=== PATIENT | male | born 1935 | race Two or more races ===

== ENCOUNTER 2017-12-16 03:19 | Emergency (ER) | payer MEDICARE, OTHER ==
[~2017-12-16] VITALS: Ht 177.8 cm; Wt 113.6 kg
[~2017-12-16 03:19] MED LIST: ALLO100T PO; CHOL10002 PO; CINA30TA PO; COU2.5T PO; FERR325T28 PO; FINA5TAB11 PO; FURO40TA4 PO; GABA-532 PO; GABA600T2 PO; GLIM4TAB79 PO; INSU100C4 SQ; LANTUS SUBCUT; METO25TA6 PO; MULT1TAB74 PO; MYCO250C46 PO; PRAV20TA4 PO; TACR1CAP2 PO; TACR1CAP28 PO; VALA500T37 PO
[2017-12-16] MEDS ORDERED: normal saline 1000ML IV soln IVB ONE (03:20)
[2017-12-16] MEDS ORDERED: dexamethasone sod phosphate 10mg/ml inj IV STA (03:20)
[2017-12-16 04:44] LABS: BASOPHILS % (AUTO) 0.2 % (0-1); EOSINOPHILS # (AUTO) 0.1 X10'3 (0-0.9); EOSINOPHILS % (AUTO) 1.3 % (0-6); HEMATOCRIT 39.9 % (42.0-52.0); HEMOGLOBIN 12.8 g/dl (14.0-17.9); LYMPHOCYTES # (AUTO) 0.5 X10'3 (1.1-4.8); LYMPHOCYTES % (AUTO) 6.3 % (21-51); MEAN CORPUSCULAR HEMOGLOBIN 29.2 PG (27.0-31.0); MEAN CORPUSCULAR HGB CONC 32.1 % (33.0-36.5); MEAN PLATELET VOLUME 9.4 FL (7.4-10.4); MONOCYTES # (AUTO) 0.6 X10'3 (0-0.9); MONOCYTES % (AUTO) 8.5 % (2-12); NEUTROPHILS # (AUTO) 6.2 X10'3 (1.8-7.7); NEUTROPHILS % (AUTO) 83.7 % (42-75); PLATELET COUNT 173 X10'3 (140-440); RED BLOOD COUNT 4.39 X10'6 (4.70-6.10); RED CELL DISTRIBUTION WIDTH 14.6 % (11.5-14.5); WHITE BLOOD COUNT 7.4 X10'3 (4.5-11.0)
[2017-12-16 04:58] LABS: ALANINE AMINOTRANSFERASE 46 U/L (12-78); ALBUMIN 3.1 G/DL (3.4-5.0); ALBUMIN/GLOBULIN RATIO 0.8 (1.1-1.5); ALKALINE PHOSPHATASE 74 IU/L (46-116); ANION GAP 12 (8-16); ASPARTATE AMINO TRANSFERASE 44 U/L (10-37); BILIRUBIN,TOTAL 0.6 MG/DL (0.1-1.0); BLOOD UREA NITROGEN 81 MG/DL (7-18); BUN/CREATININE RATIO 36.3 (5.4-32.0); CALCIUM 8.6 MG/DL (8.5-10.1); CHLORIDE 104 MMOL/L (99-107); CREATININE 2.23 MG/DL (0.60-1.10); GLUCOSE 51 MG/DL (70-104); POTASSIUM 3.4 MMOL/L (3.5-5.1); SODIUM 143 MMOL/L (135-145); TOTAL CARBON DIOXIDE 26.7 MMOL/L (24-32); TOTAL PROTEIN 6.8 G/DL (6.4-8.2); eGFR 28 ML/MIN
[2017-12-16] MEDS ORDERED: CefTRIAXone 2gm/D5W 50ml 50 ML IV ONE (05:05)
[2017-12-16 07:12] VITALS: BP 140/60
== END 2017-12-16 07:15 | disposition home or self-care (01) ==
LOC: ER 03:19
DX: E11.649 Type 2 diabetes mellitus with hypoglycemia without coma (principal); I48.91 Unspecified atrial fibrillation; I12.9 Hypertensive chronic kidney disease with stage 1 through stage 4 chronic kidney disease, or unspecified chronic kidney disease; E11.22 Type 2 diabetes mellitus with diabetic chronic kidney disease; N18.9 Chronic kidney disease, unspecified; M19.90 Unspecified osteoarthritis, unspecified site; M10.9 Gout, unspecified; Z91.013 Allergy to seafood; Z88.0 Allergy status to penicillin; Z88.8 Allergy status to other drugs, medicaments and biological substances; Z79.4 Long term (current) use of insulin; Z79.2 Long term (current) use of antibiotics; Z79.01 Long term (current) use of anticoagulants; Z79.899 Other long term (current) drug therapy
CPT/HCPCS: 36415; 80053; 82948; 85025; 96361; 96365; 96375; 99284; J0696; J1100; J7030

== ENCOUNTER 2018-03-10 10:58 | Emergency (ER) | payer MEDICARE, OTHER ==
[~2018-03-10] VITALS: Ht 172.7 cm; Wt 100.0 kg
[~2018-03-10 10:58] MED LIST changes: +GABA600T13 PO; -GABA600T2 PO
[2018-03-10] MEDS ORDERED: indomethacin 25mg capsule PO ONE (11:15)
[2018-03-10] MEDS ORDERED: HYDROcodone/acetaminophen 5mg/325mg tablet PO ONE (11:15)
[2018-03-10 11:25] LABS: BASOPHILS % (AUTO) 0.1 % (0-1); EOSINOPHILS # (AUTO) 0.1 X10'3 (0-0.9); EOSINOPHILS % (AUTO) 1.6 % (0-6); HEMATOCRIT 38.4 % (42.0-52.0); HEMOGLOBIN 12.5 g/dl (14.0-17.9); LYMPHOCYTES # (AUTO) 0.6 X10'3 (1.1-4.8); LYMPHOCYTES % (AUTO) 6.4 % (21-51); MEAN CORPUSCULAR HEMOGLOBIN 29.6 PG (27.0-31.0); MEAN CORPUSCULAR HGB CONC 32.6 % (33.0-36.5); MEAN CORPUSCULAR VOLUME 90.8 FL (78-98); MEAN PLATELET VOLUME 8.8 FL (7.4-10.4); MONOCYTES % (AUTO) 10.2 % (2-12); NEUTROPHILS # (AUTO) 7.7 X10'3 (1.8-7.7); NEUTROPHILS % (AUTO) 81.7 % (42-75); PLATELET COUNT 163 X10'3 (140-440); RED BLOOD COUNT 4.23 X10'6 (4.70-6.10); RED CELL DISTRIBUTION WIDTH 14.1 % (11.5-14.5); WHITE BLOOD COUNT 9.5 X10'3 (4.5-11.0)
[2018-03-10 11:50] LABS: ALANINE AMINOTRANSFERASE 17 U/L (12-78); ALBUMIN 3.1 G/DL (3.4-5.0); ALBUMIN/GLOBULIN RATIO 0.8 (1.1-1.5); ALKALINE PHOSPHATASE 86 IU/L (46-116); ANION GAP 12 (8-16); ASPARTATE AMINO TRANSFERASE 12 U/L (10-37); BILIRUBIN,TOTAL 1.2 MG/DL (0.1-1.0); BLOOD UREA NITROGEN 65 MG/DL (7-18); BUN/CREATININE RATIO 28.3 (5.4-32.0); CALCIUM 7.6 MG/DL (8.5-10.1); CHLORIDE 97 MMOL/L (99-107); GLUCOSE 291 MG/DL (70-104); POTASSIUM 4.4 MMOL/L (3.5-5.1); SODIUM 134 MMOL/L (135-145); TOTAL CARBON DIOXIDE 25.2 MMOL/L (24-32); TOTAL PROTEIN 6.8 G/DL (6.4-8.2); eGFR 27 ML/MIN
[2018-03-10 12:09] VITALS: BP 165/81
[2018-03-10] MEDS ORDERED: COLC0.6T69 PO (12:13)
[2018-03-10] MEDS ORDERED: INDO25CA18 PO (12:13)
== END 2018-03-10 12:46 | disposition home or self-care (01) ==
LOC: ER 10:59
DX: M10.9 Gout, unspecified (principal); I12.9 Hypertensive chronic kidney disease with stage 1 through stage 4 chronic kidney disease, or unspecified chronic kidney disease; N18.3 Chronic kidney disease, stage 3 (moderate); E11.22 Type 2 diabetes mellitus with diabetic chronic kidney disease; I48.91 Unspecified atrial fibrillation; M19.90 Unspecified osteoarthritis, unspecified site; Z91.013 Allergy to seafood; Z88.0 Allergy status to penicillin; Z88.8 Allergy status to other drugs, medicaments and biological substances; Z79.4 Long term (current) use of insulin; Z79.01 Long term (current) use of anticoagulants; Z79.899 Other long term (current) drug therapy; Z98.890 Other specified postprocedural states
CPT/HCPCS: 36415; 73110; 80053; 84550; 85025; 99284

== ENCOUNTER 2018-05-31 03:06 | Inpatient (IN) | payer MEDICARE, OTHER ==
[~2018-05-31] VITALS: Ht 172.7 cm; Wt 56.8 kg
[~2018-05-31 03:06] MED LIST changes: +COLC0.6T69 PO; +INDO25CA18 PO
[2018-05-31 04:15] LABS: ALANINE AMINOTRANSFERASE 15 U/L (12-78); ALBUMIN 3.3 G/DL (3.4-5.0); ALBUMIN/GLOBULIN RATIO 1.1 (1.1-1.5); ALKALINE PHOSPHATASE 81 IU/L (46-116); ANION GAP 10 (8-16); ASPARTATE AMINO TRANSFERASE 13 U/L (10-37); BILIRUBIN,TOTAL 0.6 MG/DL (0.1-1.0); BLOOD UREA NITROGEN 66 MG/DL (7-18); BUN/CREATININE RATIO 26.9 (5.4-32.0); CALCIUM 7.7 MG/DL (8.5-10.1); CHLORIDE 104 MMOL/L (99-107); CREATININE 2.45 MG/DL (0.60-1.10); GLUCOSE 126 MG/DL (70-104); POTASSIUM 3.8 MMOL/L (3.5-5.1); SODIUM 139 MMOL/L (135-145); TOTAL CARBON DIOXIDE 24.6 MMOL/L (24-32); TOTAL PROTEIN 6.4 G/DL (6.4-8.2); eGFR 26 ML/MIN
[2018-05-31 04:18] LABS: BASOPHILS % (AUTO) 0.6 % (0-1); EOSINOPHILS # (AUTO) 0.1 X10'3 (0-0.9); EOSINOPHILS % (AUTO) 3.1 % (0-6); HEMATOCRIT 38.3 % (42.0-52.0); HEMOGLOBIN 12.5 g/dl (14.0-17.9); LYMPHOCYTES # (AUTO) 0.9 X10'3 (1.1-4.8); LYMPHOCYTES % (AUTO) 20.4 % (21-51); MEAN CORPUSCULAR HEMOGLOBIN 29.5 PG (27.0-31.0); MEAN CORPUSCULAR HGB CONC 32.6 g/dL (33.0-36.5); MEAN CORPUSCULAR VOLUME 90.6 FL (78-98); MEAN PLATELET VOLUME 10.2 FL (7.4-10.4); MONOCYTES # (AUTO) 0.6 X10'3 (0-0.9); NEUTROPHILS # (AUTO) 2.8 X10'3 (1.8-7.7); NEUTROPHILS % (AUTO) 62.9 % (42-75); PLATELET COUNT 148 X10'3 (140-440); RED BLOOD COUNT 4.23 X10'6 (4.70-6.10); RED CELL DISTRIBUTION WIDTH 14.4 % (11.5-14.5); WHITE BLOOD COUNT 4.4 X10'3 (4.5-11.0)
[2018-05-31 04:36] LABS: MAGNESIUM 1.8 MG/DL (1.5-2.4)
[2018-05-31] MEDS ORDERED: CINA30TA PO (04:37)
[2018-05-31] MEDS ORDERED: GLIM4TAB79 PO (04:37)
[2018-05-31] MEDS ORDERED: METO25TA6 PO (04:37)
[2018-05-31] MEDS ORDERED: CHOL10002 PO (04:37)
[2018-05-31] MEDS ORDERED: TURM500C4 PO (04:37)
[2018-05-31] MEDS ORDERED: TACR0.5C20 PO (04:37)
[2018-05-31] MEDS ORDERED: COU1T PO (04:37)
[2018-05-31] MEDS ORDERED: TACR1CAP2 PO (04:37)
[2018-05-31] MEDS ORDERED: LOVA20TA2 PO (04:37)
[2018-05-31] MEDS ORDERED: FURO40TA4 PO ×2 (04:37)
[2018-05-31] MEDS ORDERED: magnesium 2GM in 50ml NS 50 ML IV PRN (05:25)
[2018-05-31] MEDS ORDERED: dextrose ORAL solution 15 GM/59 ML bottle PO PRN ×2 (05:25)
[2018-05-31] MEDS ORDERED: magnesium hydroxide 30ml (MOM) UD suspension PO PRN (05:25)
[2018-05-31] MEDS ORDERED: glucagon, human recombinant 1mg kit SUBCUT PRN (05:25)
[2018-05-31] MEDS ORDERED: magnesium 4gm in 100ml NS 100 ML IV PRN (05:25)
[2018-05-31] MEDS ORDERED: ondansetron/PF 4mg/2ml inj IV PRN (05:25)
[2018-05-31] MEDS ORDERED: dextrose 50%-water 50ml dispensing syringe IV PRN ×2 (05:25)
[2018-05-31] MEDS ORDERED: potassium Cl 40MEQ/NS 500ml 500 ML IV PRN ×2 (05:25)
[2018-05-31] MEDS ORDERED: MESSAGE TO PHARMACY PO ONE (05:25)
[2018-05-31] MEDS ORDERED: mag hydrox/Alum hydrox/simeth 30ml oral suspension PO PRN (05:25)
[2018-05-31] MEDS ORDERED: acetaminophen 325mg tablet PO PRN ×2 (05:25→23:00)
[2018-05-31] MEDS ORDERED: potassium Cl 20 mEq SR tablet PO PRN ×2 (05:25)
[2018-05-31] MEDS: K and/or MAG REPLACEMENT MC SCH (07:31)
[2018-05-31] MEDS ORDERED: tacrolimus anhydrous 1mg capsule PO SCH (08:00)
[2018-05-31] MEDS ORDERED: non-formulary drug (Turmeric/Turmeric Root Extract (Turmeric 500 mg Capsule) 1 CAP) PO SCH (08:00)
[2018-05-31] MEDS: normal saline 1000ml 1,000 ML IV SCH (08:04)
[2018-05-31] MEDS: vitamin D (cholecalciferol) 1,000 unit tablet PO SCH (08:19)
[2018-05-31] MEDS: furosemide 40mg tablet PO SCH ×2 (08:19→22:19)
[2018-05-31] MEDS: metoprolol tartrate 25mg tablet PO SCH ×2 (08:19→22:45)
[2018-05-31] MEDS: atorvastatin 10mg tablet PO SCH ×2 (08:19→22:19)
[2018-05-31] MEDS: cinacalcet 30mg tablet PO SCH (08:21)
[2018-05-31] MEDS ORDERED: nitroGLYCERIN 0.4mg SUBLingual tab SL PRN (08:40)
[2018-05-31] MEDS ORDERED: metoprolol tartrate 1mg/ml inj IV PRN (08:40)
[2018-05-31] MEDS ORDERED: aminophylline 250mg/10ml inj. IV PRN (08:40)
[2018-05-31] MEDS ORDERED: regadenoson 0.4mg/5ml syringe IV ONE (08:40)
[2018-05-31] MEDS ORDERED: mycophenolate mofetil 250mg capsule PO ONE (11:10)
[2018-05-31] MEDS ORDERED: COU3T PO (14:42)
[2018-05-31] MEDS ORDERED: INSU100I8 (14:44)
[2018-05-31] MEDS ORDERED: LANTUS (14:44)
[2018-05-31 15:30] VITALS: BP 128/66
--- NOTE | 2018-05-31 15:30 | NUR ---
Patient admitted from ED via gurney, accompanied by ED RN. Transferred to bed via ambulation, assisted by staff. Vital signs taken and are stable. Pictures taken of skin tear on left arm (stated from patient that it is from a week ago), and of Right big toe.Patient is stable and resting comfortably in bed and has no complaints.
--- NOTE | 2018-05-31 18:12 | NUR ---
Problems reprioritized. Patient report given, questions answered & plan of care reviewed with Rosy NEUMANN. Pt resting in bed and in no acute distress.
--- NOTE | 2018-05-31 18:20 | NUR ---
Patient in room [facility]. I have received report from Kisha NEUMANN and Grecia NEUMANN and had the opportunity to ask questions and assume patient care.
[2018-05-31 19:00] VITALS: BP 120/67
[2018-05-31] MEDS: insulin Lispro (HumaLOG) vial - multi-dose SQ SCH (19:06)
[2018-05-31] MEDS ORDERED: tacrolimus anhydrous 0.5mg capsule PO SCH (21:00)
[2018-05-31] MEDS ORDERED: warfarin 3mg tablet PO ONE (21:00)
[2018-05-31] MEDS: insulin glargine (Lantus) pen - multi-dose SQ SCH (21:00)
--- NOTE | 2018-05-31 21:59 | NUR ---
Call MD regarding patients transplant medication as apparently he take 2mg prograf in AM and 1.5mg in evening - not what we had on e-apr.
[2018-05-31] MEDS: mycophenolate mofetil 250mg capsule PO SCH (22:15)
[2018-05-31] MEDS: tacrolimus anhydrous 0.5mg capsule PO SCH (22:21)
[2018-06-01] VITALS (11 sets, daily range): BP systolic 107–161; BP diastolic 57–90
[2018-06-01] MEDS: normal saline 1000ml 1,000 ML IV SCH (01:36)
[2018-06-01 06:28] LABS: BASOPHILS % (AUTO) 0.4 % (0-1); EOSINOPHILS # (AUTO) 0.2 X10'3 (0-0.9); EOSINOPHILS % (AUTO) 5.1 % (0-6); HEMATOCRIT 36.9 % (42.0-52.0); LYMPHOCYTES # (AUTO) 0.8 X10'3 (1.1-4.8); LYMPHOCYTES % (AUTO) 18.1 % (21-51); MEAN CORPUSCULAR HEMOGLOBIN 29.3 PG (27.0-31.0); MEAN CORPUSCULAR HGB CONC 32.6 g/dL (33.0-36.5); MEAN CORPUSCULAR VOLUME 89.7 FL (78-98); MEAN PLATELET VOLUME 10.2 FL (7.4-10.4); MONOCYTES # (AUTO) 0.5 X10'3 (0-0.9); MONOCYTES % (AUTO) 11.2 % (2-12); NEUTROPHILS % (AUTO) 65.2 % (42-75); PLATELET COUNT 148 X10'3 (140-440); RED BLOOD COUNT 4.12 X10'6 (4.70-6.10); RED CELL DISTRIBUTION WIDTH 14.4 % (11.5-14.5); WHITE BLOOD COUNT 4.6 X10'3 (4.5-11.0)
[2018-06-01 06:33] LABS: INR 1.9 INR
[2018-06-01 06:34] LABS: ALANINE AMINOTRANSFERASE 13 U/L (12-78); ALBUMIN 3.1 G/DL (3.4-5.0); ALKALINE PHOSPHATASE 79 IU/L (46-116); ANION GAP 11 (8-16); ASPARTATE AMINO TRANSFERASE 13 U/L (10-37); BILIRUBIN,TOTAL 0.8 MG/DL (0.1-1.0); BLOOD UREA NITROGEN 60 MG/DL (7-18); BUN/CREATININE RATIO 29.1 (5.4-32.0); CALCIUM 8.3 MG/DL (8.5-10.1); CHLORIDE 106 MMOL/L (99-107); CREATININE 2.06 MG/DL (0.60-1.10); GLUCOSE 86 MG/DL (70-104); MAGNESIUM 1.8 MG/DL (1.5-2.4); POTASSIUM 3.7 MMOL/L (3.5-5.1); SODIUM 143 MMOL/L (135-145); TOTAL CARBON DIOXIDE 26.1 MMOL/L (24-32); TOTAL PROTEIN 6.2 G/DL (6.4-8.2); eGFR 31 ML/MIN
--- NOTE | 2018-06-01 06:54 | NUR ---
Patient in room [facility]. I have received report from Rosy NEUMANN and had the opportunity to ask questions and assume patient care.
[2018-06-01] MEDS: K and/or MAG REPLACEMENT MC SCH (08:00)
[2018-06-01] MEDS ORDERED: tacrolimus anhydrous 0.5mg capsule PO SCH (08:00)
[2018-06-01] MEDS: furosemide 40mg tablet PO SCH ×2 (09:21→22:07)
[2018-06-01] MEDS: atorvastatin 10mg tablet PO SCH (09:22)
[2018-06-01] MEDS: vitamin D (cholecalciferol) 1,000 unit tablet PO SCH (09:22)
[2018-06-01] MEDS: cinacalcet 30mg tablet PO SCH (09:22)
[2018-06-01] MEDS: tacrolimus anhydrous 1mg capsule PO SCH (09:23)
[2018-06-01] MEDS: mycophenolate mofetil 250mg capsule PO SCH ×2 (09:25→22:11)
[2018-06-01] MEDS ORDERED: aminophylline inj. 10 ML IV ONE (10:31)
[2018-06-01] MEDS ORDERED: regadenoson 0.4mg/5ml syringe IV ONE ×2 (10:31→10:40)
[2018-06-01] MEDS ORDERED: aminophylline 250mg/10ml inj. IV PRN (10:40)
[2018-06-01] MEDS ORDERED: metoprolol tartrate 1mg/ml inj IV PRN (10:45)
[2018-06-01] MEDS: metoprolol tartrate 25mg tablet PO SCH ×2 (13:04→22:12)
--- NOTE | 2018-06-01 15:43 | NUR ---
DM Consult: A1C 8.7. Pt admit w/ chest pressure currently in observation for ACS EF 68%. Pt PO 75% heart healthy diet currently NPO at midnight tonight for cardiac imagine. GLU WNL only on heart healthy diet at this time. LBM 05/31. Pt seen by RD for written/verbal DM ed w/ RD contact information provided. RD encouraged attending CDE course. Pt reports trying to lose wt now and pay more attention to GLU control/diet. RD encouraged to call if any DM questions. Will continue to monitor. Rec: 1. continue heart healthy diet; monitor for carb controlled addition needs per MD 2. monitor for ONS needs 3. wt per rx Addendum: 06/01/18 at [address] Amended: Links added.
--- NOTE | 2018-06-01 18:24 | NUR ---
Problems reprioritized. Patient report given, questions answered & plan of care reviewed with Rosy NEUMANN.
--- NOTE | 2018-06-01 18:30 | NUR ---
Patient in room [facility]. I have received report from Raghu cuenca and had the opportunity to ask questions and assume patient care.
[2018-06-01] MEDS: insulin Lispro (HumaLOG) vial - multi-dose SQ SCH ×4 (19:07→22:31)
--- NOTE | 2018-06-01 19:23 | NUR ---
Patient refused 9 unit coverage of humalog per our protocol, and stated he only wanted 5 units. Wasted 4units and gave 5 per pt. request.
[2018-06-01] MEDS: insulin glargine (Lantus) pen - multi-dose SQ SCH (21:00)
[2018-06-01] MEDS ORDERED: warfarin 4mg tablet PO ONE (21:00)
[2018-06-01] MEDS: tacrolimus anhydrous 0.5mg capsule PO SCH (22:09)
[2018-06-02] VITALS: BP 118/51
--- NOTE | 2018-06-02 02:44 | NUR ---
At 0230, patient c/o feeling like he had a low blood sugar. Accu check revealed BS of 63. Gave 15g oral dextrose as currently w/o IV.
--- NOTE | 2018-06-02 02:50 | NUR ---
Blood sugar now at 105. Will continue to monitor.
[2018-06-02 06:04] LABS: BASOPHILS % (AUTO) 0.4 % (0-1); EOSINOPHILS # (AUTO) 0.1 X10'3 (0-0.9); EOSINOPHILS % (AUTO) 3.3 % (0-6); HEMATOCRIT 38.2 % (42.0-52.0); HEMOGLOBIN 12.5 g/dl (14.0-17.9); LYMPHOCYTES # (AUTO) 0.9 X10'3 (1.1-4.8); LYMPHOCYTES % (AUTO) 20.3 % (21-51); MEAN CORPUSCULAR HEMOGLOBIN 29.4 PG (27.0-31.0); MEAN CORPUSCULAR HGB CONC 32.7 g/dL (33.0-36.5); MEAN CORPUSCULAR VOLUME 89.8 FL (78-98); MEAN PLATELET VOLUME 9.6 FL (7.4-10.4); MONOCYTES # (AUTO) 0.5 X10'3 (0-0.9); MONOCYTES % (AUTO) 11.8 % (2-12); NEUTROPHILS # (AUTO) 2.8 X10'3 (1.8-7.7); NEUTROPHILS % (AUTO) 64.2 % (42-75); PLATELET COUNT 142 X10'3 (140-440); RED BLOOD COUNT 4.26 X10'6 (4.70-6.10); RED CELL DISTRIBUTION WIDTH 14.3 % (11.5-14.5); WHITE BLOOD COUNT 4.4 X10'3 (4.5-11.0)
[2018-06-02 06:22] LABS: ALANINE AMINOTRANSFERASE 12 U/L (12-78); ALBUMIN 3.3 G/DL (3.4-5.0); ALKALINE PHOSPHATASE 80 IU/L (46-116); ANION GAP 9 (8-16); ASPARTATE AMINO TRANSFERASE 12 U/L (10-37); BILIRUBIN,TOTAL 1.1 MG/DL (0.1-1.0); BLOOD UREA NITROGEN 60 MG/DL (7-18); BUN/CREATININE RATIO 26.8 (5.4-32.0); CALCIUM 8.5 MG/DL (8.5-10.1); CHLORIDE 105 MMOL/L (99-107); CREATININE 2.24 MG/DL (0.60-1.10); GLUCOSE 121 MG/DL (70-104); INR 1.9 INR; MAGNESIUM 1.8 MG/DL (1.5-2.4); POTASSIUM 3.6 MMOL/L (3.5-5.1); PROTHROMBIN TIME 19.1 SECONDS (9.0-12.0); SODIUM 141 MMOL/L (135-145); TOTAL CARBON DIOXIDE 26.6 MMOL/L (24-32); TOTAL PROTEIN 6.5 G/DL (6.4-8.2); eGFR 28 ML/MIN
--- NOTE | 2018-06-02 06:44 | NUR ---
TOSSER for Heart doctor called and said to reinstate diet as patient will NOT be going for the cath proceedure today. also, OK to put new piv into RFA.
--- NOTE | 2018-06-02 07:02 | NUR ---
Problems reprioritized. Patient report given, questions answered & plan of care reviewed with Mana NEUMANN. Patient resting, in no distress.
[2018-06-02] MEDS: K and/or MAG REPLACEMENT MC SCH (07:37)
[2018-06-02 07:43] VITALS: BP 130/59
--- NOTE | 2018-06-02 08:58 | NUR ---
Poornima Thorne NP, stated catheterization has been cancelled at this time. Kidney transplant history is of concern, and Dr Melgoza will continue to follow pt.
[2018-06-02] MEDS: cinacalcet 30mg tablet PO SCH (09:12)
[2018-06-02] MEDS: vitamin D (cholecalciferol) 1,000 unit tablet PO SCH (09:17)
[2018-06-02] MEDS: atorvastatin 10mg tablet PO SCH (09:17)
[2018-06-02] MEDS: mycophenolate mofetil 250mg capsule PO SCH (09:19)
[2018-06-02] MEDS: furosemide 40mg tablet PO SCH (09:19)
[2018-06-02] MEDS: metoprolol tartrate 25mg tablet PO SCH (09:19)
[2018-06-02] MEDS: tacrolimus anhydrous 1mg capsule PO SCH (10:15)
[2018-06-02] MEDS ORDERED: warfarin 5mg tablet PO ONE (10:45)
[2018-06-02] MEDS ORDERED: NITR0.4T51 SL (11:23)
[2018-06-02] MEDS ORDERED: MYCO250C PO (11:23)
[2018-06-02] MEDS ORDERED: FURO40TA4 PO (11:23)
[2018-06-02 11:41] VITALS: BP 123/63
--- NOTE | 2018-06-02 13:03 | NUR ---
PT. DISCHARGE READY TO GO. PATIENT IS WAITING FOR TO PICK HIM UP AT 3:30. WOULD PREFER FOR TO PICK HIM UP INSTEAD OF TAKING CAB. ASSISTANT AUDITOR CALLING IN MEDICATIONS NOW TO [facility] [address].
--- NOTE | 2018-06-02 14:00 | NUR ---
pt decided that his can not pick him up. He would like a cab vcalled for him and is able to pay for his cab.
--- NOTE | 2018-06-02 15:10 | NUR ---
PT DISCHARGED AT 1430 IN A STABLE CONDITION. TOOK ALL OF HIS BELONGINGS WITH HIM. IV DC'D, PRESSURE BANDAGE APPLIED, NO S/SX BLEEDING NOTED. TELE DC'D REMOVED AND RETURNED. REVIEWED DISCHARGE PAPERWORK WITH PT. HE UNDERSTANDS TO RETURN IF ANY WORSENING OR PERSISTENT SYMPTOMS. REVIEWED NEW MEDICATIONS. NITRO DELIVERED TO PT IN ROOM BY [facility]. HOSPITAL VOLUNTEER ESCORTED PT. IN W/C TO BOTTOM FLOOR WHERE A [employer] CAB AWAITED HIM TO DRIVE HIM TO HIS ASSISTED LIVING.
[2018-06-03] MEDS ORDERED: furosemide 40mg tablet PO SCH (08:00)
== END 2018-06-02 15:00 | disposition home or self-care (01) | DRG 303 ==
LOC: ER 03:06 → ED HOLD 05:21 → EDBEDREQ 14:24 → SUR 3N 15:20
PROVIDERS: ADMIT Family Medicine; ATTEND Family Medicine
DX: I25.119 Atherosclerotic heart disease of native coronary artery with unspecified angina pectoris (principal); I13.0 Hypertensive heart and chronic kidney disease with heart failure and stage 1 through stage 4 chronic kidney disease, or unspecified chronic kidney disease; I50.32 Chronic diastolic (congestive) heart failure; R07.89 Other chest pain; I48.91 Unspecified atrial fibrillation; Z79.01 Long term (current) use of anticoagulants; N18.9 Chronic kidney disease, unspecified; E11.22 Type 2 diabetes mellitus with diabetic chronic kidney disease
CPT/HCPCS: 36415; 71045; 78452; 80053; 82948; 83036; 83735; 83880; 84484; 85025; 85610; 87070; 93005; 93017; 93306; 99285; A9500; G0378; J0280; J1815; J7030; J7507; J7517

== ENCOUNTER 2018-09-20 07:37 | Inpatient (IN) | payer MEDICARE, OTHER ==
[~2018-09-20] VITALS: Ht 172.7 cm; Wt 95.5 kg
--- NOTE | 2018-09-20 06:00 | NUR ---
Patient in room [facility] 4007. I have received report from Cruz NEUMANN and had the opportunity to ask questions and assume patient care.
[~2018-09-20 07:37] MED LIST changes: -ALLO100T PO; -COLC0.6T69 PO; +COU1T PO; -COU2.5T PO; +COU3T PO; -FERR325T28 PO; -FINA5TAB11 PO; -GABA-532 PO; -GABA600T13 PO; +GLIM4TAB4 PO; -GLIM4TAB79 PO; -INDO25CA18 PO; -INSU100C4 SQ; +INSU100I8; +LANTUS; -LANTUS SUBCUT; +LOVA20TA2 PO; -MULT1TAB74 PO; +MYCO250C PO; -MYCO250C46 PO; +NITR0.4T51 SL; -PRAV20TA4 PO; +TACR0.5C20 PO; -TACR1CAP28 PO; -VALA500T37 PO
[2018-09-20 08:27] LABS: BASOPHILS # (AUTO) 0.1 X10'3 (0-0.2); BASOPHILS % (AUTO) 0.4 % (0-1); EOSINOPHILS # (AUTO) 0.1 X10'3 (0-0.9); EOSINOPHILS % (AUTO) 0.4 % (0-6); HEMATOCRIT 36.3 % (42.0-52.0); HEMOGLOBIN 11.9 g/dl (14.0-17.9); LYMPHOCYTES # (AUTO) 0.5 X10'3 (1.1-4.8); LYMPHOCYTES % (AUTO) 3.8 % (21-51); MEAN CORPUSCULAR HEMOGLOBIN 28.9 PG (27.0-31.0); MEAN CORPUSCULAR HGB CONC 32.8 g/dL (33.0-36.5); MEAN CORPUSCULAR VOLUME 88.2 FL (78-98); MEAN PLATELET VOLUME 9.2 FL (7.4-10.4); MONOCYTES # (AUTO) 0.8 X10'3 (0-0.9); MONOCYTES % (AUTO) 6.3 % (2-12); NEUTROPHILS # (AUTO) 11.4 X10'3 (1.8-7.7); NEUTROPHILS % (AUTO) 89.1 % (42-75); PLATELET COUNT 259 X10'3 (140-440); RED BLOOD COUNT 4.11 X10'6 (4.70-6.10); RED CELL DISTRIBUTION WIDTH 14.4 % (11.5-14.5); WHITE BLOOD COUNT 12.8 X10'3 (4.5-11.0)
[2018-09-20 08:37] LABS: ANION GAP 12 (8-16); BLOOD UREA NITROGEN 89 MG/DL (7-18); BUN/CREATININE RATIO 25.4 (5.4-32.0); CALCIUM 8.3 MG/DL (8.5-10.1); CHLORIDE 101 MMOL/L (99-107); GLUCOSE 147 MG/DL (70-104); POTASSIUM 4.4 MMOL/L (3.5-5.1); SODIUM 136 MMOL/L (135-145); TOTAL CARBON DIOXIDE 23.1 MMOL/L (24-32); eGFR 17 ML/MIN
[2018-09-20 08:38] LABS: ALANINE AMINOTRANSFERASE 17 U/L (12-78); ALBUMIN 3.1 G/DL (3.4-5.0); ALBUMIN/GLOBULIN RATIO 0.8 (1.1-1.5); ALKALINE PHOSPHATASE 83 IU/L (46-116); ASPARTATE AMINO TRANSFERASE 12 U/L (10-37); BILIRUBIN,TOTAL 0.6 MG/DL (0.1-1.0); ETHANOL 0.106 GM/DL (0.0-0.010)
[2018-09-20] MEDS ORDERED: acetaminophen 325mg tablet PO ONE (09:15)
--- NOTE | 2018-09-20 09:15 | NUR ---
Pt family asked if it was ok to give pt his morning medications as he takes them every day at 0900. EDMD stated that this was fine to let pt take his at home medications. Educated pt and family on pt's high INR, and to not take the Coumadin but all other medications were ok to take.
[2018-09-20] MEDS ORDERED: normal saline 1000ml 1,000 ML IV ONE (09:25)
[2018-09-20] MEDS ORDERED: magnesium 2GM in 50ml NS 50 ML IV PRN (09:40)
[2018-09-20] MEDS ORDERED: sodium phosphate inj. 30 MMOL in dextrose 5%-water 250 ML IV PRN (09:40)
[2018-09-20] MEDS ORDERED: Neutra Phos packet PO PRN (09:40)
[2018-09-20] MEDS ORDERED: sodium phosphate inj. 15 MMOL in dextrose 5%-water 150 ML IV PRN (09:40)
[2018-09-20] MEDS ORDERED: potassium Cl 20 mEq SR tablet PO PRN ×2 (09:40)
[2018-09-20] MEDS ORDERED: magnesium 4gm in 100ml NS 100 ML IV PRN (09:40)
[2018-09-20] MEDS ORDERED: potassium CL 10mEq/100ml bag 100 ML IV PRN ×2 (09:40)
[2018-09-20] MEDS ORDERED: diphenhydrAMINE 25mg capsule PO PRN (09:40)
[2018-09-20] MEDS ORDERED: bisacodyl 10mg suppository rectal RC PRN (09:40)
[2018-09-20] MEDS ORDERED: acetaminophen 325mg tablet PO PRN (09:40)
[2018-09-20] MEDS ORDERED: magnesium Cl slow-release 64mg tablet PO PRN (09:40)
--- NOTE | 2018-09-20 09:45 | NUR ---
pt attempted to urinate but was unsuccessful.
[2018-09-20] MEDS: sodium chloride 0.45% 1,000 ML IV SCH ×2 (10:16→20:47)
[2018-09-20] MEDS ORDERED: ALLO100T PO (10:48)
[2018-09-20] MEDS ORDERED: GABA600T13 PO (10:51)
[2018-09-20] MEDS ORDERED: GABA-532 PO (10:51)
[2018-09-20] MEDS ORDERED: COU1T PO (10:54)
[2018-09-20] MEDS ORDERED: TACR1CAP28 PO (10:55)
[2018-09-20] MEDS ORDERED: TACR0.5C20 PO (10:57)
[2018-09-20] MEDS ORDERED: LOVA40TA2 PO (10:58)
[2018-09-20] MEDS ORDERED: FINA5TAB11 PO (11:01)
[2018-09-20 11:29] LABS: CLARITY,URINE TURBID (Clear); COLOR,URINE STRAW (Yellow); GLUCOSE, URINE NEGATIVE (Neg); KETONES,URINE NEGATIVE (Neg); LEUKOCYTE ESTERASE ,URINE LARGE (Neg); NITRITES, URINE NEGATIVE (Neg); OCCULT BLOOD,URINE MODERATE (Neg); PH,URINE 5.5 (4.8-8.0); PROTEIN,URINE 30 mg/dl (Neg); UROBILINOGEN,URINE 0.2 E.U/dL (0.2-1.0)
[2018-09-20 11:40] LABS: UA COLLECTION TYPE NON-SPECIFIED
[2018-09-20 11:50] LABS: SQUAMOUS EPITHELIAL CELL,UR MODERATE /LPF (FEW)
[2018-09-20 11:51] LABS: MUCUS STRANDS NONE SEEN /LPF (Neg); TRANSITIONAL EPI CELLS,URINE MODERATE /HPF; WBC,URINE TNTC /HPF (0-4)
[2018-09-20 11:53] LABS: BACTERIA,URINE 4+ /HPF (Neg); RBC,URINE 0-2 /HPF (0-2)
[2018-09-20 13:00] VITALS: BP 109/71
[2018-09-20] MEDS: HYDROcodone/acetaminophen 5mg/325mg tablet PO PRN (15:47)
[2018-09-20] MEDS ORDERED: FURO40TA4 PO (15:56)
[2018-09-20] MEDS ORDERED: MYCO500T5 PO (15:57)
[2018-09-20] MEDS ORDERED: NITR0.4T51 SL (15:58)
[2018-09-20 17:00] VITALS: BP 109/72
[2018-09-20] MEDS ORDERED: nitroGLYCERIN 0.4mg SUBLingual tab SL PRN (17:25)
[2018-09-20] MEDS: tacrolimus anhydrous 1mg capsule PO SCH (17:25)
[2018-09-20] MEDS ORDERED: linezolid 600mg tablet PO ONE (17:45)
[2018-09-20] MEDS: mycophenolate mofetil 250mg capsule PO SCH (19:16)
[2018-09-20] MEDS: metroNIDAZOLE 500mg tablet PO SCH (19:17)
[2018-09-20] MEDS: allopurinol 100mg tablet PO SCH (19:18)
[2018-09-20] MEDS: heparin, porcine 5000 units/ml vial SQ SCH (19:20)
[2018-09-20] MEDS: metoprolol tartrate 25mg tablet PO SCH (19:23)
[2018-09-20] MEDS: linezolid 600mg tablet PO SCH (19:24)
[2018-09-20] MEDS: docusate sod 100mg capsule PO SCH (20:00)
[2018-09-20] MEDS: tacrolimus anhydrous 0.5mg capsule PO SCH (20:47)
[2018-09-20] MEDS ORDERED: temazepam 15mg capsule PO PRN (21:00)
[2018-09-20 22:00] VITALS: BP 115/69
[2018-09-21] MEDS: HYDROcodone/acetaminophen 5mg/325mg tablet PO PRN ×4 (02:04→19:11)
[2018-09-21] MEDS: sodium chloride 0.45% 1,000 ML IV SCH (05:57)
--- NOTE | 2018-09-21 06:17 | NUR ---
Problems reprioritized. Patient report given, questions answered & plan of care reviewed with Joyce NEUMANN.
[2018-09-21 06:21] LABS: ALBUMIN 2.9 G/DL (3.4-5.0); ANION GAP 18 (8-16); BASOPHILS % (AUTO) 0.4 % (0-1); BLOOD UREA NITROGEN 79 MG/DL (7-18); BUN/CREATININE RATIO 27.5 (5.4-32.0); CALCIUM 8.1 MG/DL (8.5-10.1); CHLORIDE 99 MMOL/L (99-107); CREATININE 2.87 MG/DL (0.60-1.10); EOSINOPHILS # (AUTO) 0.1 X10'3 (0-0.9); GLUCOSE 58 MG/DL (70-104); HEMATOCRIT 35.3 % (42.0-52.0); HEMOGLOBIN 11.5 g/dl (14.0-17.9); LYMPHOCYTES # (AUTO) 0.9 X10'3 (1.1-4.8); LYMPHOCYTES % (AUTO) 7.6 % (21-51); MAGNESIUM 1.6 MG/DL (1.5-2.4); MEAN CORPUSCULAR HEMOGLOBIN 28.7 PG (27.0-31.0); MEAN CORPUSCULAR HGB CONC 32.6 g/dL (33.0-36.5); MEAN PLATELET VOLUME 9.9 FL (7.4-10.4); MONOCYTES # (AUTO) 0.8 X10'3 (0-0.9); MONOCYTES % (AUTO) 6.7 % (2-12); NEUTROPHILS # (AUTO) 10.5 X10'3 (1.8-7.7); NEUTROPHILS % (AUTO) 84.3 % (42-75); PHOSPHORUS 4.6 MG/DL (2.3-4.5); PLATELET COUNT 227 X10'3 (140-440); POTASSIUM 3.7 MMOL/L (3.5-5.1); RED BLOOD COUNT 4.01 X10'6 (4.70-6.10); RED CELL DISTRIBUTION WIDTH 14.2 % (11.5-14.5); SODIUM 135 MMOL/L (135-145); TOTAL CARBON DIOXIDE 17.8 MMOL/L (24-32); WHITE BLOOD COUNT 12.5 X10'3 (4.5-11.0); eGFR 21 ML/MIN
[2018-09-21 06:44] VITALS: BP 121/72
[2018-09-21] MEDS: gabapentin 300mg capsule PO SCH (07:32)
[2018-09-21] MEDS: metroNIDAZOLE 500mg tablet PO SCH ×2 (07:32→19:09)
[2018-09-21] MEDS: heparin, porcine 5000 units/ml vial SQ SCH ×2 (07:32→19:15)
[2018-09-21] MEDS: docusate sod 100mg capsule PO SCH ×2 (07:32→19:32)
[2018-09-21] MEDS: cinacalcet 30mg tablet PO SCH (07:33)
[2018-09-21] MEDS: allopurinol 100mg tablet PO SCH ×2 (07:33→19:09)
[2018-09-21] MEDS: atorvastatin 10mg tablet PO SCH (07:33)
[2018-09-21] MEDS: metoprolol tartrate 25mg tablet PO SCH ×2 (07:33→19:12)
[2018-09-21] MEDS: tacrolimus anhydrous 1mg capsule PO SCH (07:34)
[2018-09-21] MEDS: finasteride 5mg tablet PO SCH (07:34)
[2018-09-21] MEDS: mycophenolate mofetil 250mg capsule PO SCH ×2 (07:34→19:09)
[2018-09-21] MEDS: linezolid 600mg tablet PO SCH ×2 (07:34→19:09)
[2018-09-21] MEDS ORDERED: vitamin D (cholecalciferol) 1,000 unit tablet PO SCH (08:00)
[2018-09-21 10:07] VITALS: BP 106/53
[2018-09-21] MEDS: sodium bicarbonate (8.4%) inj. 75 MEQ in dextrose 5%-water 500 ML IV SCH ×3 (10:55→21:24)
[2018-09-21] MEDS: levoFLOXACIN 250mg tablet PO SCH (10:55)
[2018-09-21] MEDS: ondansetron/PF 4mg/2ml inj IV PRN (14:14)
[2018-09-21] MEDS: HYDROmorphone inj. 0.5 MG/0.5 ML DISP.SYRIN IV PRN (14:15)
--- NOTE | 2018-09-21 15:33 | NUR ---
zyvox consult: Pt seen by RD for written/verbal zyvox ed w/ RD contact information. Pt became nauseated during ed; RN was notified and RD encouraged pt to contact RD if further diet questions. Addendum: 09/21/18 at [address] Amended: Links added.
[2018-09-21] MEDS ORDERED: CHOL100046 PO (17:12)
[2018-09-21 18:00] VITALS: BP 106/66
[2018-09-21] MEDS: tacrolimus anhydrous 0.5mg capsule PO SCH (21:20)
--- NOTE | 2018-09-21 21:30 | NUR ---
Pt had HS blood sugar of 205. Called business analytics manager to see if hyperglycemic protocol should be started since pt currently taking Amaryl. Dr ordered to continue to monitor and to recheck BS as needed and in the AM.
[2018-09-21 22:00] VITALS: BP 120/68
[2018-09-22 05:37] LABS: BASOPHILS % (AUTO) 0.4 % (0-1); EOSINOPHILS # (AUTO) 0.2 X10'3 (0-0.9); EOSINOPHILS % (AUTO) 1.9 % (0-6); HEMATOCRIT 33.3 % (42.0-52.0); HEMOGLOBIN 11.1 g/dl (14.0-17.9); LYMPHOCYTES # (AUTO) 0.6 X10'3 (1.1-4.8); LYMPHOCYTES % (AUTO) 6.9 % (21-51); MEAN CORPUSCULAR HEMOGLOBIN 29.2 PG (27.0-31.0); MEAN CORPUSCULAR HGB CONC 33.4 g/dL (33.0-36.5); MEAN CORPUSCULAR VOLUME 87.3 FL (78-98); MONOCYTES # (AUTO) 0.7 X10'3 (0-0.9); MONOCYTES % (AUTO) 8.2 % (2-12); NEUTROPHILS % (AUTO) 82.6 % (42-75); PLATELET COUNT 221 X10'3 (140-440); RED BLOOD COUNT 3.82 X10'6 (4.70-6.10); RED CELL DISTRIBUTION WIDTH 14.8 % (11.5-14.5); WHITE BLOOD COUNT 8.5 X10'3 (4.5-11.0)
[2018-09-22 05:50] LABS: ALBUMIN 2.6 G/DL (3.4-5.0); ANION GAP 10 (8-16); BLOOD UREA NITROGEN 66 MG/DL (7-18); BUN/CREATININE RATIO 23.9 (5.4-32.0); CALCIUM 8.1 MG/DL (8.5-10.1); CHLORIDE 101 MMOL/L (99-107); CREATININE 2.76 MG/DL (0.60-1.10); GLUCOSE 87 MG/DL (70-104); MAGNESIUM 1.6 MG/DL (1.5-2.4); PHOSPHORUS 4.4 MG/DL (2.3-4.5); POTASSIUM 3.7 MMOL/L (3.5-5.1); SODIUM 137 MMOL/L (135-145); TOTAL CARBON DIOXIDE 26.2 MMOL/L (24-32); eGFR 22 ML/MIN
[2018-09-22 06:00] VITALS: BP 149/75
--- NOTE | 2018-09-22 06:00 | NUR ---
Patient in room [facility] 4007. I have received report from THIEN Fuentes and had the opportunity to ask questions and assume patient care.
--- NOTE | 2018-09-22 06:00 | NUR ---
Patient in room [facility]TH[facility] 4007. I have received report from SHANE NEUMANN and had the opportunity to ask questions and assume patient care.
[2018-09-22] MEDS: sodium bicarbonate (8.4%) inj. 75 MEQ in dextrose 5%-water 500 ML IV SCH ×3 (06:01→15:02)
--- NOTE | 2018-09-22 06:38 | NUR ---
Problems reprioritized. Patient report given, questions answered & plan of care reviewed with Iesha NEUMANN and Jeramy NEUMANN.
[2018-09-22] MEDS: mycophenolate mofetil 250mg capsule PO SCH ×2 (07:24→20:41)
[2018-09-22] MEDS: metroNIDAZOLE 500mg tablet PO SCH ×2 (07:24→20:41)
[2018-09-22] MEDS: atorvastatin 10mg tablet PO SCH (07:24)
[2018-09-22] MEDS: gabapentin 300mg capsule PO SCH (07:25)
[2018-09-22] MEDS: metoprolol tartrate 25mg tablet PO SCH ×2 (07:25→20:44)
[2018-09-22] MEDS: cinacalcet 30mg tablet PO SCH (07:26)
[2018-09-22] MEDS: finasteride 5mg tablet PO SCH (07:26)
[2018-09-22] MEDS: tacrolimus anhydrous 1mg capsule PO SCH (07:26)
[2018-09-22] MEDS: allopurinol 100mg tablet PO SCH ×2 (07:26→20:42)
[2018-09-22] MEDS: linezolid 600mg tablet PO SCH (07:26)
[2018-09-22] MEDS: vitamin D (cholecalciferol) 1,000 unit tablet PO SCH (07:26)
[2018-09-22] MEDS: heparin, porcine 5000 units/ml vial SQ SCH ×2 (07:27→20:45)
[2018-09-22] MEDS: docusate sod 100mg capsule PO SCH ×2 (07:28→20:44)
[2018-09-22] MEDS: ondansetron/PF 4mg/2ml inj IV PRN (09:42)
[2018-09-22] MEDS: HYDROcodone/acetaminophen 5mg/325mg tablet PO PRN ×2 (09:42→20:52)
[2018-09-22 10:00] VITALS: BP 106/67
--- NOTE | 2018-09-22 10:23 | NUR ---
call Dr. wiggins after bladder scan of 814mls per orders. Received new orders of flomax, will give dose now.
--- NOTE | 2018-09-22 10:45 | NUR ---
DOWN TO CT
[2018-09-22] MEDS: tamsulosin 0.4mg capsule PO SCH ×2 (11:06→20:41)
[2018-09-22] MEDS: levoFLOXACIN 250mg tablet PO SCH (11:06)
[2018-09-22 11:23] LABS: HEMOGLOBIN A1C 4.9 % (4.5-6.2)
--- NOTE | 2018-09-22 11:36 | NUR ---
F/u: Pt/family seen by VIKY for verbal zyvox reinforcement. Addendum: 09/22/18 at [address] Amended: Links added.
[2018-09-22 13:02] LABS: CLARITY,URINE CLOUDY (Clear); COLOR,URINE YELLOW (Yellow); GLUCOSE, URINE NEGATIVE (Neg); KETONES,URINE NEGATIVE (Neg); LEUKOCYTE ESTERASE ,URINE LARGE (Neg); NITRITES, URINE NEGATIVE (Neg); OCCULT BLOOD,URINE MODERATE (Neg); PROTEIN,URINE TRACE mg/dl (Neg); UROBILINOGEN,URINE 0.2 E.U/dL (0.2-1.0)
[2018-09-22 13:08] LABS: UA COLLECTION TYPE CLN CATCH MIDSTREAM
[2018-09-22 13:10] LABS: BACTERIA,URINE 4+ /HPF (Neg); SQUAMOUS EPITHELIAL CELL,UR NONE SEEN /LPF (FEW); WBC,URINE TNTC /HPF (0-4)
--- NOTE | 2018-09-22 17:56 | NUR ---
Student documentation: I have reviewed and agree with all interventions, assessments performed and documented by RAMILA NEUMANN.
[2018-09-22 18:00] VITALS: BP 116/67
--- NOTE | 2018-09-22 18:00 | NUR ---
Problems reprioritized. Patient report given, questions answered & plan of care reviewed with THIEN Barnes.
--- NOTE | 2018-09-22 19:00 | NUR ---
Patient in room [facility] 4007. I have received report from Linda RN's and had the opportunity to ask questions and assume patient care.
[2018-09-22] MEDS: lactobacillus rhamnosus 10,000 MMU CELLS/CAPSULE PO SCH (20:41)
[2018-09-22] MEDS: tacrolimus anhydrous 0.5mg capsule PO SCH (20:42)
--- NOTE | 2018-09-23 01:00 | NUR ---
Pt post void residual 941, Cricket Damico was notified, he ordered a one time cath. A16 fr coude was use with slight difficulty but no trauma was noted, pt tolerated well. 1000 ml of clear yellow urine obtained.
[2018-09-23] MEDS ORDERED: LIDOcaine 2% 10ml TOPICAL JELLY (Urojet) MM ONE (01:10)
[2018-09-23] MEDS: HYDROmorphone inj. 0.5 MG/0.5 ML DISP.SYRIN IV PRN (01:28)
[2018-09-23 05:16] VITALS: BP 111/62
--- NOTE | 2018-09-23 06:15 | NUR ---
Patient in room [facility] 4007. I have received report from Cameron NEUMANN and had the opportunity to ask questions and assume patient care.
[2018-09-23 06:27] LABS: BASOPHILS % (AUTO) 0.4 % (0-1); EOSINOPHILS # (AUTO) 0.2 X10'3 (0-0.9); EOSINOPHILS % (AUTO) 2.5 % (0-6); HEMATOCRIT 32.3 % (42.0-52.0); HEMOGLOBIN 10.7 g/dl (14.0-17.9); LYMPHOCYTES # (AUTO) 0.7 X10'3 (1.1-4.8); MEAN CORPUSCULAR HEMOGLOBIN 29.1 PG (27.0-31.0); MEAN CORPUSCULAR HGB CONC 33.2 g/dL (33.0-36.5); MEAN CORPUSCULAR VOLUME 87.9 FL (78-98); MONOCYTES # (AUTO) 0.7 X10'3 (0-0.9); MONOCYTES % (AUTO) 9.2 % (2-12); NEUTROPHILS # (AUTO) 5.7 X10'3 (1.8-7.7); NEUTROPHILS % (AUTO) 77.9 % (42-75); PLATELET COUNT 222 X10'3 (140-440); RED BLOOD COUNT 3.68 X10'6 (4.70-6.10); RED CELL DISTRIBUTION WIDTH 14.5 % (11.5-14.5); WHITE BLOOD COUNT 7.3 X10'3 (4.5-11.0)
[2018-09-23 06:31] LABS: ALBUMIN 2.6 G/DL (3.4-5.0); ANION GAP 9 (8-16); BLOOD UREA NITROGEN 64 MG/DL (7-18); BUN/CREATININE RATIO 21.1 (5.4-32.0); CALCIUM 8.2 MG/DL (8.5-10.1); CHLORIDE 100 MMOL/L (99-107); CREATININE 3.03 MG/DL (0.60-1.10); GLUCOSE 65 MG/DL (70-104); MAGNESIUM 1.8 MG/DL (1.5-2.4); PHOSPHORUS 4.2 MG/DL (2.3-4.5); POTASSIUM 4.1 MMOL/L (3.5-5.1); SODIUM 139 MMOL/L (135-145); TOTAL CARBON DIOXIDE 30.3 MMOL/L (24-32); eGFR 20 ML/MIN
[2018-09-23 06:55] VITALS: BP 117/84
--- NOTE | 2018-09-23 06:56 | NUR ---
DILAUDID AND NORCO NOT REASSESSED FROM [employer] DRIVER.
[2018-09-23] MEDS: vitamin D (cholecalciferol) 1,000 unit tablet PO SCH (07:50)
[2018-09-23] MEDS: cinacalcet 30mg tablet PO SCH (07:51)
[2018-09-23] MEDS: allopurinol 100mg tablet PO SCH (07:51)
[2018-09-23] MEDS: lactobacillus rhamnosus 10,000 MMU CELLS/CAPSULE PO SCH (07:51)
[2018-09-23] MEDS: gabapentin 300mg capsule PO SCH (07:51)
[2018-09-23] MEDS: atorvastatin 10mg tablet PO SCH (07:53)
[2018-09-23] MEDS: metroNIDAZOLE 500mg tablet PO SCH (07:53)
[2018-09-23] MEDS: finasteride 5mg tablet PO SCH (07:53)
[2018-09-23] MEDS: tacrolimus anhydrous 1mg capsule PO SCH (07:53)
[2018-09-23] MEDS: metoprolol tartrate 25mg tablet PO SCH (07:53)
[2018-09-23] MEDS: tamsulosin 0.4mg capsule PO SCH (07:53)
[2018-09-23] MEDS: mycophenolate mofetil 250mg capsule PO SCH (07:53)
[2018-09-23] MEDS: docusate sod 100mg capsule PO SCH (07:53)
[2018-09-23] MEDS: heparin, porcine 5000 units/ml vial SQ SCH (07:54)
[2018-09-23] MEDS ORDERED: sulfamethoxazole/trimethoprim SS (400mg/80mg) tablet (single-strength) PO SCH (08:50)
[2018-09-23] MEDS ORDERED: METR500T PO (08:58)
[2018-09-23] MEDS ORDERED: tamsulosin capsule PO (08:58)
[2018-09-23] MEDS ORDERED: SULF-14 PO (08:58)
[2018-09-23] MEDS ORDERED: sulfamethoxazole/trimethoprim DS (800/160mg) tablet PO SCH ×3 (09:32→10:04)
[2018-09-23 10:00] VITALS: BP 95/52
[2018-09-23 10:10] VITALS: BP 95/52
== END 2018-09-23 15:20 | disposition home health service (06) | DRG 698 ==
LOC: ER 07:38 → ORTHO 4S 12:35 → CMPBEDREQ 19:00
PROVIDERS: ADMIT Internal Medicine Critical Care Medicine; ATTEND Internal Medicine Critical Care Medicine
DX: T86.19 Other complication of kidney transplant (principal); N17.0 Acute kidney failure with tubular necrosis; N39.0 Urinary tract infection, site not specified; E86.0 Dehydration; F10.920 Alcohol use, unspecified with intoxication, uncomplicated; I48.91 Unspecified atrial fibrillation; M10.9 Gout, unspecified; E66.9 Obesity, unspecified; E11.22 Type 2 diabetes mellitus with diabetic chronic kidney disease; W18.39XA Other fall on same level, initial encounter; Y93.01 Activity, walking, marching and hiking; G89.29 Other chronic pain; M54.9 Dorsalgia, unspecified; R19.7 Diarrhea, unspecified; I95.9 Hypotension, unspecified; I12.9 Hypertensive chronic kidney disease with stage 1 through stage 4 chronic kidney disease, or unspecified chronic kidney disease; Z96.653 Presence of artificial knee joint, bilateral; E11.649 Type 2 diabetes mellitus with hypoglycemia without coma; B96.20 Unspecified Escherichia coli [E. coli] as the cause of diseases classified elsewhere; T45.515A Adverse effect of anticoagulants, initial encounter; D89.9 Disorder involving the immune mechanism, unspecified; N18.3 Chronic kidney disease, stage 3 (moderate); N40.0 Benign prostatic hyperplasia without lower urinary tract symptoms; Y83.0 Surgical operation with transplant of whole organ as the cause of abnormal reaction of the patient, or of later complication, without mention of misadventure at the time of the procedure; Z79.01 Long term (current) use of anticoagulants; Z94.0 Kidney transplant status; Z82.49 Family history of ischemic heart disease and other diseases of the circulatory system; Z83.3 Family history of diabetes mellitus; Z85.028 Personal history of other malignant neoplasm of stomach; Z87.891 Personal history of nicotine dependence; Y92.098 Other place in other non-institutional residence as the place of occurrence of the external cause; Y99.8 Other external cause status; Z88.4 Allergy status to anesthetic agent; Z88.0 Allergy status to penicillin; Z91.048 Other nonmedicinal substance allergy status; Z81.1 Family history of alcohol abuse and dependence; Z79.899 Other long term (current) drug therapy; Z68.32 Body mass index [BMI] 32.0-32.9, adult
CPT/HCPCS: 36415; 74176; 80048; 80053; 80320; 81001; 82948; 83036; 83735; 84100; 85025; 85610; 87077; 87081; 87088; 87186; 93005; 96360; 97116; 97161; 97530; 99285; G0378; J0604; J1170; J1644; J2405; J3490; J7507; J7517

== ENCOUNTER 2019-09-28 14:39 | Emergency (ER) | payer MEDICARE, OTHER ==
[~2019-09-28] VITALS: Ht 172.7 cm; Wt 95.5 kg
[~2019-09-28 14:39] MED LIST changes: +ALLO100T PO; -CHOL10002 PO; -COU1T PO; -COU3T PO; +DOCU-148 PO; +FINA5TAB11 PO; +FLO0.4C PO; -FURO40TA4 PO; +GABA-532 PO; -GLIM4TAB4 PO; +GLIM4TAB7 PO; -LANTUS; +LANTUS SUBCUT; -LOVA20TA2 PO; +MONT10TA26 PO; +MULT-227 PO; -MYCO250C PO; +MYCO500T5 PO; -TACR1CAP2 PO; +TACR1CAP24 PO; +WARF3TAB56 PO
[2019-09-28 15:33] LABS: BASOPHILS % (AUTO) 0.5 % (0-1); EOSINOPHILS # (AUTO) 0.2 X10'3 (0-0.9); EOSINOPHILS % (AUTO) 4.1 % (0-6); HEMATOCRIT 36.8 % (42.0-52.0); HEMOGLOBIN 11.9 g/dl (14.0-17.9); LYMPHOCYTES # (AUTO) 0.6 X10'3 (1.1-4.8); LYMPHOCYTES % (AUTO) 13.3 % (21-51); MEAN CORPUSCULAR HEMOGLOBIN 29.3 PG (27.0-31.0); MEAN CORPUSCULAR HGB CONC 32.4 g/dL (33.0-36.5); MEAN CORPUSCULAR VOLUME 90.6 FL (78-98); MEAN PLATELET VOLUME 9.5 FL (7.4-10.4); MONOCYTES # (AUTO) 0.5 X10'3 (0-0.9); MONOCYTES % (AUTO) 10.8 % (2-12); NEUTROPHILS # (AUTO) 3.4 X10'3 (1.8-7.7); NEUTROPHILS % (AUTO) 71.3 % (42-75); PLATELET COUNT 146 X10'3 (140-440); RED BLOOD COUNT 4.06 X10'6 (4.70-6.10); RED CELL DISTRIBUTION WIDTH 14.5 % (11.5-14.5); WHITE BLOOD COUNT 4.8 X10'3 (4.5-11.0)
[2019-09-28 15:55] LABS: ALANINE AMINOTRANSFERASE 21 U/L (12-78); ALBUMIN 3.7 G/DL (3.4-5.0); ALBUMIN/GLOBULIN RATIO 0.9 (1.1-1.5); ALKALINE PHOSPHATASE 85 IU/L (46-116); ANION GAP 14 (8-16); ASPARTATE AMINO TRANSFERASE 17 U/L (10-37); BILIRUBIN,TOTAL 1.1 MG/DL (0.1-1.0); BLOOD UREA NITROGEN 51 MG/DL (7-18); BUN/CREATININE RATIO 19.5 (5.4-32.0); CALCIUM 8.1 MG/DL (8.5-10.1); CHLORIDE 99 MMOL/L (99-107); CREATININE 2.61 MG/DL (0.60-1.10); GLUCOSE 375 MG/DL (70-104); POTASSIUM 4.2 MMOL/L (3.5-5.1); SODIUM 137 MMOL/L (135-145); TOTAL PROTEIN 7.6 G/DL (6.4-8.2); eGFR 24 ML/MIN
[2019-09-28 16:31] VITALS: BP 155/81
[2019-09-28] MEDS ORDERED: sucralfate 1gm/10ml UD suspension PO STA (16:50)
[2019-09-28] MEDS ORDERED: mag hydrox/Alum hydrox/simeth 30ml oral suspension PO ONE (16:50)
[2019-09-28] MEDS ORDERED: LIDOcaine Viscous 15ml cup MM ONE (16:50)
== END 2019-09-28 17:47 | disposition home or self-care (01) ==
LOC: ER 14:40
DX: R07.89 Other chest pain (principal); R05 Cough; R10.9 Unspecified abdominal pain; I48.91 Unspecified atrial fibrillation; I12.9 Hypertensive chronic kidney disease with stage 1 through stage 4 chronic kidney disease, or unspecified chronic kidney disease; N18.9 Chronic kidney disease, unspecified; E11.22 Type 2 diabetes mellitus with diabetic chronic kidney disease; M19.90 Unspecified osteoarthritis, unspecified site; Z98.890 Other specified postprocedural states; Z72.89 Other problems related to lifestyle; Z88.0 Allergy status to penicillin; Z88.8 Allergy status to other drugs, medicaments and biological substances; Z79.4 Long term (current) use of insulin; Z79.01 Long term (current) use of anticoagulants; Z79.899 Other long term (current) drug therapy
CPT/HCPCS: 36415; 71045; 80053; 83880; 84484; 85025; 93005; 99285

== ENCOUNTER 2020-10-14 16:34 | Inpatient (IN) | payer MEDICARE, OTHER ==
[~2020-10-14] VITALS: Ht 172.7 cm; Wt 104.1 kg
[~2020-10-14 16:34] MED LIST changes: +CEPH500C2 PO; +FLUT16SP NAS; +FURO40TA4 PO; -GLIM4TAB7 PO; -INSU100I8; +INSU100I8 SQ; +LOP25T PO; +LOVA40TA2 PO; -METO25TA6 PO; -MONT10TA26 PO; +MONT10TA32 PO; +[UNRECOGNIZED DRUG - CODE] PO
[2020-10-14 17:42] LABS: BASOPHILS % (AUTO) 0.2 % (0-1); EOSINOPHILS # (AUTO) 0.2 X10'3 (0-0.9); EOSINOPHILS % (AUTO) 2.3 % (0-6); HEMATOCRIT 35.9 % (42.0-52.0); HEMOGLOBIN 11.6 g/dl (14.0-17.9); LYMPHOCYTES # (AUTO) 0.8 X10'3 (1.1-4.8); LYMPHOCYTES % (AUTO) 10.6 % (21-51); MEAN CORPUSCULAR HEMOGLOBIN 30.5 PG (27.0-31.0); MEAN CORPUSCULAR HGB CONC 32.4 g/dL (33.0-36.5); MEAN CORPUSCULAR VOLUME 94.1 FL (78-98); MEAN PLATELET VOLUME 8.3 FL (7.4-10.4); MONOCYTES % (AUTO) 13.2 % (2-12); NEUTROPHILS # (AUTO) 5.5 X10'3 (1.8-7.7); NEUTROPHILS % (AUTO) 73.7 % (42-75); PLATELET COUNT 114 X10'3 (140-440); RED BLOOD COUNT 3.82 X10'6 (4.70-6.10); RED CELL DISTRIBUTION WIDTH 13.7 % (11.5-14.5); WHITE BLOOD COUNT 7.5 X10'3 (4.5-11.0)
[2020-10-14 17:54] LABS: ANION GAP 9 (8-16); BLOOD UREA NITROGEN 62 MG/DL (7-18); BUN/CREATININE RATIO 16.6 (5.4-32.0); CALCIUM 8.2 MG/DL (8.5-10.1); CHLORIDE 100 MMOL/L (99-107); CREATININE 3.74 MG/DL (0.60-1.10); GLUCOSE 169 MG/DL (70-104); POTASSIUM 3.9 MMOL/L (3.5-5.1); SODIUM 136 MMOL/L (135-145); TOTAL CARBON DIOXIDE 27.3 MMOL/L (24-32); eGFR 16 ML/MIN
[2020-10-14 18:18] LABS: CLARITY,URINE CLOUDY (Clear); COLOR,URINE YELLOW (Yellow); GLUCOSE, URINE NEGATIVE (Neg); KETONES,URINE NEGATIVE (Neg); LEUKOCYTE ESTERASE ,URINE LARGE (Neg); NITRITES, URINE POSITIVE (Neg); OCCULT BLOOD,URINE MODERATE (Neg); PH,URINE 5.5 (4.8-8.0); PROTEIN,URINE 30 mg/dl (Neg); UROBILINOGEN,URINE 0.2 E.U/dL (0.2-1.0)
[2020-10-14 18:22] LABS: UA COLLECTION TYPE URINAL
[2020-10-14 18:26] LABS: BACTERIA,URINE 2+ /HPF (Neg); WBC,URINE TNTC /HPF (0-4)
[2020-10-14 18:27] LABS: MUCUS STRANDS FEW /LPF (Neg); TRANSITIONAL EPI CELLS,URINE FEW /HPF
[2020-10-14 18:28] LABS: HYALINE CASTS 0-3 /LPF (NEGATIVE); SQUAMOUS EPITHELIAL CELL,UR MODERATE /LPF (FEW); WBC CLUMPS,URINE MODERATE /HPF (NEGATIVE)
--- NOTE | 2020-10-14 18:32 | NUR ---
PT ON BED A&OX4. CRACKING JOKES I WALKED IN THE ROOM. FAMILY IS AT BEDSIDE, AND HE IS SPEAKING ON THE PHONE WITH MORE FAMILY.
[2020-10-14] MEDS ORDERED: ciprofloxacin lact 400MG/200ML 200 ML IV SCH (20:00)
[2020-10-14] MEDS ORDERED: temazepam 15mg capsule PO PRN (21:00)
[2020-10-14] MEDS ORDERED: potassium Cl 40MEQ/1/2NS 520ml 520 ML IV PRN ×2 (22:40)
[2020-10-14] MEDS ORDERED: magnesium 4gm in 100ml NS 100 ML IV PRN (22:40)
[2020-10-14] MEDS ORDERED: potassium Cl 20 mEq SR tablet PO PRN ×2 (22:40)
[2020-10-14] MEDS ORDERED: ondansetron/PF 4mg/2ml inj IV PRN (22:40)
[2020-10-14] MEDS ORDERED: magnesium Cl slow-release 64mg tablet PO PRN (22:40)
[2020-10-14] MEDS ORDERED: acetaminophen 325mg tablet PO PRN (22:40)
[2020-10-14] MEDS ORDERED: magnesium 2GM in 50ml NS 50 ML IV PRN (22:40)
[2020-10-14] MEDS ORDERED: GLIM1TAB6 PO (22:54)
[2020-10-14] MEDS ORDERED: TACR0.5C20 PO (22:54)
[2020-10-14] MEDS ORDERED: LOVA20TA2 PO (22:54)
[2020-10-14] MEDS ORDERED: LOP25T PO (22:54)
[2020-10-14] MEDS ORDERED: CINA30TA2 PO (22:54)
[2020-10-14 23:06] LABS: HEMOGLOBIN A1C 8.3 % (4.5-6.2)
[2020-10-14] MEDS: normal saline 1000ml 1,000 ML IV SCH (23:08)
[2020-10-14] MEDS ORDERED: dextrose 50%-water 50ml dispensing syringe IV PRN ×2 (23:40)
[2020-10-14] MEDS ORDERED: dextrose ORAL solution 15 GM/59 ML bottle PO PRN ×2 (23:40)
[2020-10-14] MEDS ORDERED: MESSAGE TO PHARMACY PO ONE (23:40)
[2020-10-14] MEDS ORDERED: glucagon, human recombinant 1mg kit SUBCUT PRN (23:40)
[2020-10-15 00:30] VITALS: BP 165/76
[2020-10-15 05:59] LABS: BASOPHILS % (AUTO) 0.2 % (0-1); EOSINOPHILS # (AUTO) 0.2 X10'3 (0-0.9); HEMATOCRIT 34.6 % (42.0-52.0); HEMOGLOBIN 11.2 g/dl (14.0-17.9); LYMPHOCYTES # (AUTO) 0.8 X10'3 (1.1-4.8); LYMPHOCYTES % (AUTO) 9.6 % (21-51); MEAN CORPUSCULAR HEMOGLOBIN 30.3 PG (27.0-31.0); MEAN CORPUSCULAR HGB CONC 32.3 g/dL (33.0-36.5); MEAN CORPUSCULAR VOLUME 93.8 FL (78-98); MEAN PLATELET VOLUME 9.7 FL (7.4-10.4); MONOCYTES # (AUTO) 0.8 X10'3 (0-0.9); NEUTROPHILS # (AUTO) 6.2 X10'3 (1.8-7.7); NEUTROPHILS % (AUTO) 78.2 % (42-75); PLATELET COUNT 116 X10'3 (140-440); RED BLOOD COUNT 3.69 X10'6 (4.70-6.10); RED CELL DISTRIBUTION WIDTH 13.5 % (11.5-14.5)
[2020-10-15 06:05] LABS: ALANINE AMINOTRANSFERASE 19 U/L (12-78); ALBUMIN 2.5 G/DL (3.4-5.0); ALBUMIN/GLOBULIN RATIO 0.7 (1.1-1.5); ALKALINE PHOSPHATASE 74 IU/L (46-116); ANION GAP 12 (8-16); ASPARTATE AMINO TRANSFERASE 13 U/L (10-37); BILIRUBIN,TOTAL 0.7 MG/DL (0.1-1.0); BLOOD UREA NITROGEN 67 MG/DL (7-18); BUN/CREATININE RATIO 20.2 (5.4-32.0); CALCIUM 7.4 MG/DL (8.5-10.1); CHLORIDE 102 MMOL/L (99-107); CREATININE 3.32 MG/DL (0.60-1.10); GLUCOSE 309 MG/DL (70-104); MAGNESIUM 1.8 MG/DL (1.5-2.4); POTASSIUM 4.3 MMOL/L (3.5-5.1); SODIUM 137 MMOL/L (135-145); TOTAL CARBON DIOXIDE 23.4 MMOL/L (24-32); TOTAL PROTEIN 5.9 G/DL (6.4-8.2); eGFR 18 ML/MIN
--- NOTE | 2020-10-15 06:42 | NUR ---
Problems reprioritized. Patient report given, questions answered & plan of care reviewed with ROSA. Addendum: 10/15/20 at 0642 by Shawn Wheeler RN Amended: Links added.
[2020-10-15] MEDS ORDERED: TACR1CAP24 PO (07:28)
[2020-10-15] MEDS ORDERED: TACR0.5C20 PO (07:28)
[2020-10-15 08:00] VITALS: BP 159/76
[2020-10-15] MEDS ORDERED: ciprofloxacin lact 400MG/200ML 200 ML IV SCH (08:00)
[2020-10-15] MEDS: K and/or MAG REPLACEMENT MC SCH ×2 (08:00→20:00)
[2020-10-15] MEDS ORDERED: TACR0.5C3 PO (09:07)
--- NOTE | 2020-10-15 09:09 | NUR ---
Diabetes consult: Pt admitted w/ UTI and weakness w/ hx of DM and CKD stage 4 per EMR. Hb A1C 8.3 and appropriate for age. Noted pt only on renal diet, discussed w/ RN about adding CCHO diet if MD agreeable. Will continue to monitor. Addendum: 10/15/20 at [address] Amended: Links added.
[2020-10-15] MEDS: heparin, porcine 5000 units/ml vial SQ SCH ×2 (10:07→20:06)
--- NOTE | 2020-10-15 10:10 | NUR ---
Pt. c/o 10/10 sharp chest pain L side of chest. It did not last long. STAT EKG completed, VS taken : 98.9, 81 HR, 161/80, 96% RA, RR 18. Hospital;ist rounding on floor and was able to see EKG. Ordered troponin.
[2020-10-15] MEDS: insulin Lispro (HumaLOG) vial - multi-dose SQ SCH ×4 (10:14→22:29)
--- NOTE | 2020-10-15 10:34 | NUR ---
Hospitalist aware of pt. c/o CAMRYN pain, and generalized muscle aches and pains. No orders at this time regarding pain.
[2020-10-15] MEDS: tacrolimus anhydrous 0.5mg capsule PO SCH ×2 (10:40→20:24)
[2020-10-15] MEDS: normal saline 1000ml 1,000 ML IV SCH ×2 (10:40→18:40)
[2020-10-15] MEDS: CefTRIAXone/D5W-Rocephin 1gm 50 ML IV SCH (10:42)
[2020-10-15] MEDS: mycophenolate mofetil 250mg capsule PO SCH ×2 (10:42→20:05)
[2020-10-15 11:10] LABS: PARTIAL THROMBOPLASTIN TIME 40 SECONDS (22-32)
[2020-10-15] MEDS ORDERED: hydrALAZINE 20mg/ml inj. IV PRN (11:10)
[2020-10-15 12:00] VITALS: BP 142/49
[2020-10-15] MEDS ORDERED: gabapentin 300mg capsule PO SCH (13:00)
[2020-10-15 16:20] VITALS: BP 156/75
[2020-10-15 18:00] VITALS: BP 160/83
--- NOTE | 2020-10-15 18:35 | NUR ---
Gave report to Jameson NEUMANN.
--- NOTE | 2020-10-15 18:40 | NUR ---
Patient in room [facility]. I have received report from Mana NEUMANN and had the opportunity to ask questions and assume patient care.
--- NOTE | 2020-10-15 19:50 | NUR ---
Page To Hospitalist re: critical results - Annita VAZQUEZ 360B. Critical result: Positive Aerobic Blood Culture for Gram + Cocci in Clusters. Notified by lab at 1945. Jameson NEUMANN Surg [id number]
[2020-10-15] MEDS: gabapentin 300mg capsule PO SCH (20:06)
[2020-10-15] MEDS: finasteride 5mg tablet PO SCH (20:08)
[2020-10-15] MEDS ORDERED: linezolid 600mg/300ml PREMIX 300 ML IV ONE (20:25)
[2020-10-15] MEDS ORDERED: furosemide 40mg tablet PO SCH (21:00)
[2020-10-15] MEDS ORDERED: warfarin 1mg tablet PO ONE (21:00)
[2020-10-15] MEDS: acetaminophen 325mg tablet PO PRN (22:19)
[2020-10-15] MEDS: insulin glargine (Lantus) pen - multi-dose SQ SCH (22:27)
[2020-10-16] VITALS: BP 115/57
[2020-10-16] MEDS: normal saline 1000ml 1,000 ML IV SCH (04:40)
[2020-10-16 06:02] LABS: BASOPHILS % (AUTO) 0.5 % (0-1); EOSINOPHILS # (AUTO) 0.2 X10'3 (0-0.9); EOSINOPHILS % (AUTO) 3.7 % (0-6); HEMATOCRIT 34.8 % (42.0-52.0); HEMOGLOBIN 11.5 g/dl (14.0-17.9); LYMPHOCYTES # (AUTO) 0.8 X10'3 (1.1-4.8); LYMPHOCYTES % (AUTO) 13.4 % (21-51); MEAN CORPUSCULAR HEMOGLOBIN 30.4 PG (27.0-31.0); MEAN CORPUSCULAR VOLUME 92.1 FL (78-98); MEAN PLATELET VOLUME 9.3 FL (7.4-10.4); MONOCYTES # (AUTO) 0.6 X10'3 (0-0.9); MONOCYTES % (AUTO) 10.4 % (2-12); NEUTROPHILS # (AUTO) 4.3 X10'3 (1.8-7.7); PLATELET COUNT 138 X10'3 (140-440); RED BLOOD COUNT 3.78 X10'6 (4.70-6.10); RED CELL DISTRIBUTION WIDTH 13.4 % (11.5-14.5)
[2020-10-16 06:24] LABS: ALANINE AMINOTRANSFERASE 16 U/L (12-78); ALBUMIN 2.7 G/DL (3.4-5.0); ALBUMIN/GLOBULIN RATIO 0.8 (1.1-1.5); ALKALINE PHOSPHATASE 86 IU/L (46-116); ANION GAP 11 (8-16); ASPARTATE AMINO TRANSFERASE 12 U/L (10-37); BILIRUBIN,TOTAL 0.6 MG/DL (0.1-1.0); BLOOD UREA NITROGEN 62 MG/DL (7-18); BUN/CREATININE RATIO 20.5 (5.4-32.0); CALCIUM 8.4 MG/DL (8.5-10.1); CHLORIDE 107 MMOL/L (99-107); CREATININE 3.02 MG/DL (0.60-1.10); GLUCOSE 83 MG/DL (70-104); POTASSIUM 3.9 MMOL/L (3.5-5.1); SODIUM 143 MMOL/L (135-145); TOTAL CARBON DIOXIDE 25.4 MMOL/L (24-32); TOTAL PROTEIN 6.2 G/DL (6.4-8.2); eGFR 20 ML/MIN
[2020-10-16 07:00] VITALS: BP 147/68
--- NOTE | 2020-10-16 07:45 | NUR ---
Problems reprioritized. Patient report given, questions answered & plan of care reviewed with Mana NEUMANN.
[2020-10-16] MEDS: CefTRIAXone/D5W-Rocephin 1gm 50 ML IV SCH (07:58)
[2020-10-16] MEDS ORDERED: furosemide 40mg tablet PO SCH (08:00)
[2020-10-16] MEDS: K and/or MAG REPLACEMENT MC SCH ×2 (08:00→20:00)
[2020-10-16] MEDS: tacrolimus anhydrous 0.5mg capsule PO SCH ×2 (08:04→23:25)
[2020-10-16] MEDS: gabapentin 300mg capsule PO SCH ×2 (08:05→23:24)
[2020-10-16] MEDS: tamsulosin 0.4mg capsule PO SCH (08:05)
[2020-10-16] MEDS: mycophenolate mofetil 250mg capsule PO SCH ×2 (08:05→23:27)
[2020-10-16] MEDS: multivitamins, therapeutics tablet PO SCH (08:05)
[2020-10-16] MEDS: allopurinol 100mg tablet PO SCH (08:05)
[2020-10-16] MEDS: atorvastatin 10mg tablet PO SCH (08:06)
[2020-10-16] MEDS: cinacalcet 30mg tablet PO SCH (08:06)
[2020-10-16] MEDS: heparin, porcine 5000 units/ml vial SQ SCH (08:07)
[2020-10-16] MEDS: metoprolol tartrate 25mg tablet PO SCH (08:09)
--- NOTE | 2020-10-16 08:37 | NUR ---
Pt. had a very difficult time voiding 70ml. bladder scanned OK. 737ml shown in bladder. Placed landin per protocol and MD Bartlett's orders. 780ml output, cloudy yellow urine.
[2020-10-16] MEDS: linezolid 600mg/300ml PREMIX 300 ML IV SCH ×2 (09:30→23:24)
[2020-10-16] MEDS: insulin Lispro (HumaLOG) vial - multi-dose SQ SCH ×2 (09:37→13:58)
[2020-10-16 11:26] LABS: % FREE PSA 12.9 % (.); PSA, FREE 0.18 ng/mL
--- NOTE | 2020-10-16 11:39 | NUR ---
Sumit consult: Provided Pt and pt's daughter w/ verbal and written low tyramine diet education w/ RD contact info. Pt receptive of education. Will continue to monitor. Addendum: 10/16/20 at [address] Amended: Links added.
[2020-10-16] MEDS ORDERED: LIDOcaine 2% 10ml TOPICAL JELLY (Urojet) TP ONE (18:50)
--- NOTE | 2020-10-16 19:02 | NUR ---
Patient in room [facility]. I have received report from Mana NEUMANN and had the opportunity to ask questions and assume patient care.
--- NOTE | 2020-10-16 19:04 | NUR ---
GAVE REPORT TO DENITA NEUMANN
[2020-10-16 19:20] VITALS: BP 157/67
[2020-10-16] MEDS ORDERED: warfarin 1mg tablet PO ONE (21:00)
--- NOTE | 2020-10-16 21:30 | NUR ---
Critical Result from lab: positive blood culture, anaerobic draw: gram positive cocci found. Paged Dr. Rendon, discussed finding in relation to the previous critical value and the change in orders that occurred yesterday, no current changes to be made.
[2020-10-16] MEDS: finasteride 5mg tablet PO SCH (23:26)
[2020-10-16] MEDS: acetaminophen 325mg tablet PO PRN (23:32)
[2020-10-16] MEDS: insulin glargine (Lantus) pen - multi-dose SQ SCH (23:42)
[2020-10-17 00:15] VITALS: BP 137/74
[2020-10-17 07:00] VITALS: BP 117/69
--- NOTE | 2020-10-17 07:19 | NUR ---
Patient in room [facility]. I have received report from Jameson NEUMANN and had the opportunity to ask questions and assume patient care.
[2020-10-17] MEDS: K and/or MAG REPLACEMENT MC SCH (08:00)
[2020-10-17] MEDS ORDERED: furosemide 40mg tablet PO SCH (08:00)
[2020-10-17 08:06] LABS: BASOPHILS % (AUTO) 0.3 % (0-1); EOSINOPHILS # (AUTO) 0.2 X10'3 (0-0.9); EOSINOPHILS % (AUTO) 4.4 % (0-6); HEMATOCRIT 35.7 % (42.0-52.0); HEMOGLOBIN 11.5 g/dl (14.0-17.9); LYMPHOCYTES # (AUTO) 0.8 X10'3 (1.1-4.8); LYMPHOCYTES % (AUTO) 15.5 % (21-51); MEAN CORPUSCULAR HGB CONC 32.1 g/dL (33.0-36.5); MEAN CORPUSCULAR VOLUME 93.4 FL (78-98); MEAN PLATELET VOLUME 9.1 FL (7.4-10.4); MONOCYTES # (AUTO) 0.4 X10'3 (0-0.9); MONOCYTES % (AUTO) 7.8 % (2-12); NEUTROPHILS # (AUTO) 3.8 X10'3 (1.8-7.7); PLATELET COUNT 150 X10'3 (140-440); RED BLOOD COUNT 3.82 X10'6 (4.70-6.10); RED CELL DISTRIBUTION WIDTH 13.7 % (11.5-14.5); WHITE BLOOD COUNT 5.2 X10'3 (4.5-11.0)
[2020-10-17 08:18] LABS: ALANINE AMINOTRANSFERASE 22 U/L (12-78); ALBUMIN 2.5 G/DL (3.4-5.0); ALBUMIN/GLOBULIN RATIO 0.7 (1.1-1.5); ALKALINE PHOSPHATASE 89 IU/L (46-116); ANION GAP 11 (8-16); ASPARTATE AMINO TRANSFERASE 22 U/L (10-37); BILIRUBIN,TOTAL 0.5 MG/DL (0.1-1.0); BLOOD UREA NITROGEN 58 MG/DL (7-18); BUN/CREATININE RATIO 20.3 (5.4-32.0); CALCIUM 8.2 MG/DL (8.5-10.1); CHLORIDE 108 MMOL/L (99-107); CREATININE 2.86 MG/DL (0.60-1.10); GLUCOSE 135 MG/DL (70-104); POTASSIUM 3.9 MMOL/L (3.5-5.1); SODIUM 143 MMOL/L (135-145); TOTAL CARBON DIOXIDE 24.1 MMOL/L (24-32); eGFR 21 ML/MIN
--- NOTE | 2020-10-17 08:41 | NUR ---
Problems reprioritized. Patient report given, questions answered & plan of care reviewed with Kisha NEUMANN.
[2020-10-17] MEDS: insulin Lispro (HumaLOG) vial - multi-dose SQ SCH ×2 (09:30→13:21)
[2020-10-17] MEDS: atorvastatin 10mg tablet PO SCH (09:33)
[2020-10-17] MEDS: tacrolimus anhydrous 0.5mg capsule PO SCH (09:34)
[2020-10-17] MEDS: tamsulosin 0.4mg capsule PO SCH (09:34)
[2020-10-17] MEDS: cinacalcet 30mg tablet PO SCH (09:35)
[2020-10-17] MEDS: multivitamins, therapeutics tablet PO SCH (09:35)
[2020-10-17] MEDS: gabapentin 300mg capsule PO SCH (09:36)
[2020-10-17] MEDS: allopurinol 100mg tablet PO SCH (09:36)
[2020-10-17] MEDS: metoprolol tartrate 25mg tablet PO SCH (09:36)
[2020-10-17] MEDS: mycophenolate mofetil 250mg capsule PO SCH (09:37)
[2020-10-17] MEDS: CefTRIAXone/D5W-Rocephin 1gm 50 ML IV SCH (09:38)
[2020-10-17] MEDS ORDERED: CEFD300C3 PO (09:38)
[2020-10-17] MEDS: linezolid 600mg/300ml PREMIX 300 ML IV SCH (10:25)
[2020-10-17 11:00] VITALS: BP 136/57
--- NOTE | 2020-10-17 12:15 | NUR ---
Called Brigette at [facility] and gave report all questions answered. Patient will be discharged at 8535
--- NOTE | 2020-10-17 12:50 | NUR ---
FC DC'd at 1245, per written order. 1350cc's clear yellow urine drained. Pt tolerated well. Will continue to monitor.
--- NOTE | 2020-10-17 14:28 | NUR ---
Patients IV dc'd cannula intact. Patient was assisted with getting dressed patients daughter at bedside. Patient Picked up by leonila cargo via wheelchair. Patient and daughter have all patients belongings.
[2020-10-17] MEDS ORDERED: warfarin 1mg tablet PO ONE (21:00)
== END 2020-10-17 14:20 | DRG 690 ==
LOC: ER 16:34 → ED HOLD 22:38 → UNDOADMIN 22:38 → ED HOLD 22:43 → SUR 3N 23:55 → ED HOLD 23:55
PROVIDERS: ADMIT Internal Medicine; ATTEND Family Medicine
DX: N39.0 Urinary tract infection, site not specified (principal); N18.4 Chronic kidney disease, stage 4 (severe); I13.0 Hypertensive heart and chronic kidney disease with heart failure and stage 1 through stage 4 chronic kidney disease, or unspecified chronic kidney disease; N17.9 Acute kidney failure, unspecified; I48.91 Unspecified atrial fibrillation; Y83.0 Surgical operation with transplant of whole organ as the cause of abnormal reaction of the patient, or of later complication, without mention of misadventure at the time of the procedure; Z96.653 Presence of artificial knee joint, bilateral; M10.9 Gout, unspecified; M19.90 Unspecified osteoarthritis, unspecified site; I25.10 Atherosclerotic heart disease of native coronary artery without angina pectoris; B96.1 Klebsiella pneumoniae [K. pneumoniae] as the cause of diseases classified elsewhere; E10.22 Type 1 diabetes mellitus with diabetic chronic kidney disease; I50.9 Heart failure, unspecified; Z79.01 Long term (current) use of anticoagulants; Z82.49 Family history of ischemic heart disease and other diseases of the circulatory system; Z83.3 Family history of diabetes mellitus; Z85.028 Personal history of other malignant neoplasm of stomach; Z87.891 Personal history of nicotine dependence; Z88.0 Allergy status to penicillin; Z88.4 Allergy status to anesthetic agent; Z81.1 Family history of alcohol abuse and dependence; Z79.899 Other long term (current) drug therapy; Z79.4 Long term (current) use of insulin; Y92.89 Other specified places as the place of occurrence of the external cause
CPT/HCPCS: 36415; 74176; 76770; 80048; 80053; 81001; 82948; 83036; 83605; 83735; 84145; 84153; 84154; 84443; 84484; 85025; 85610; 85730; 87040; 87077; 87081; 87088; 87186; 96365; 96366; 97110; 97161; 97530; 99285; G0378; J0360; J0604; J0696; J0744; J1644; J1815; J2020; J7030; J7507; J7517

== ENCOUNTER 2020-11-04 10:33 | Emergency (ER) | payer MEDICARE, OTHER ==
[~2020-11-04] VITALS: Ht 172.7 cm; Wt 100.0 kg
[~2020-11-04 10:33] MED LIST changes: +CEFD300C3 PO; -CEPH500C2 PO; -CINA30TA PO; +CINA30TA2 PO; -DOCU-148 PO; +GLIM1TAB6 PO; +LOVA20TA2 PO; -LOVA40TA2 PO; -MONT10TA32 PO; -NITR0.4T51 SL; +TACR0.5C3 PO; -TACR1CAP24 PO; -[UNRECOGNIZED DRUG - CODE] PO
[2020-11-04 10:40] VITALS: BP 140/64
[2020-11-04] MEDS ORDERED: PRED20TA PO (13:49)
== END 2020-11-04 14:05 | disposition home or self-care (01) ==
LOC: ER 10:33
DX: M81.0 Age-related osteoporosis without current pathological fracture (principal); I48.91 Unspecified atrial fibrillation; I12.9 Hypertensive chronic kidney disease with stage 1 through stage 4 chronic kidney disease, or unspecified chronic kidney disease; E11.22 Type 2 diabetes mellitus with diabetic chronic kidney disease; N18.9 Chronic kidney disease, unspecified; M19.90 Unspecified osteoarthritis, unspecified site; Z90.5 Acquired absence of kidney; Z72.89 Other problems related to lifestyle; Z98.890 Other specified postprocedural states; Z88.0 Allergy status to penicillin; Z91.041 Radiographic dye allergy status; Z91.048 Other nonmedicinal substance allergy status; Z79.4 Long term (current) use of insulin; Z79.01 Long term (current) use of anticoagulants; Z79.899 Other long term (current) drug therapy
CPT/HCPCS: 73110; 99283

== ENCOUNTER 2020-11-21 14:22 | Emergency (ER) | payer MEDICARE, OTHER ==
[~2020-11-21] VITALS: Ht 172.7 cm; Wt 109.0 kg
[~2020-11-21 14:22] MED LIST changes: -CEFD300C3 PO
[2020-11-21] MEDS ORDERED: acetaminophen 325mg tablet PO ONE (16:00)
[2020-11-21 16:37] LABS: BASOPHILS % (AUTO) 0.1 % (0-1); EOSINOPHILS % (AUTO) 0.4 % (0-6); HEMATOCRIT 33.9 % (42.0-52.0); HEMOGLOBIN 10.8 g/dl (14.0-17.9); LYMPHOCYTES # (AUTO) 0.6 X10'3 (1.1-4.8); LYMPHOCYTES % (AUTO) 7.6 % (21-51); MEAN CORPUSCULAR HEMOGLOBIN 29.8 PG (27.0-31.0); MEAN CORPUSCULAR HGB CONC 31.8 g/dL (33.0-36.5); MEAN CORPUSCULAR VOLUME 93.9 FL (78-98); MEAN PLATELET VOLUME 9.7 FL (7.4-10.4); MONOCYTES # (AUTO) 0.6 X10'3 (0-0.9); MONOCYTES % (AUTO) 7.5 % (2-12); NEUTROPHILS # (AUTO) 6.6 X10'3 (1.8-7.7); NEUTROPHILS % (AUTO) 84.4 % (42-75); PLATELET COUNT 108 X10'3 (140-440); RED CELL DISTRIBUTION WIDTH 15.2 % (11.5-14.5); WHITE BLOOD COUNT 7.9 X10'3 (4.5-11.0)
[2020-11-21] MEDS ORDERED: CASIRIVIMAB/IMDEVIMAB inject. 10 ML in normal saline 100ml IV soln 100 ML IV ONE (16:45)
--- NOTE | 2020-11-21 16:45 | NUR ---
FAMILY AND PT READ FACT SHEET ON [facility], THEY ARE AWARE DR RIOS AND INFECTIOUS CONTROL PROVIDER RECOMMEND PT RECEIVE [facility]ENER[facility], PT AND FAMILY ARE OK RECEIVING MEDICATION
[2020-11-21 16:56] LABS: ALANINE AMINOTRANSFERASE 17 U/L (12-78); ALBUMIN 2.8 G/DL (3.4-5.0); ALBUMIN/GLOBULIN RATIO 0.8 (1.1-1.5); ALKALINE PHOSPHATASE 69 IU/L (46-116); ANION GAP 16 (8-16); ASPARTATE AMINO TRANSFERASE 12 U/L (10-37); BILIRUBIN,TOTAL 1.2 MG/DL (0.1-1.0); BLOOD UREA NITROGEN 70 MG/DL (7-18); BUN/CREATININE RATIO 16.8 (5.4-32.0); CALCIUM 7.7 MG/DL (8.5-10.1); CHLORIDE 97 MMOL/L (99-107); CREATININE 4.16 MG/DL (0.60-1.10); GLUCOSE 174 MG/DL (70-104); POTASSIUM 3.7 MMOL/L (3.5-5.1); SODIUM 137 MMOL/L (135-145); TOTAL CARBON DIOXIDE 23.8 MMOL/L (24-32); TOTAL PROTEIN 6.5 G/DL (6.4-8.2); eGFR 14 ML/MIN
[2020-11-21 17:05] LABS: MAGNESIUM 1.8 MG/DL (1.5-2.4); TROPONIN I < 0.04 NG/ML (0.0-0.05)
[2020-11-21 18:39] LABS: COLOR,URINE YELLOW (Yellow); GLUCOSE, URINE NEGATIVE (Neg); OCCULT BLOOD,URINE NEGATIVE (Neg)
[2020-11-21 18:40] LABS: NITRITES, URINE NEGATIVE (Neg); UROBILINOGEN,URINE 0.2 E.U/dL (0.2-1.0)
[2020-11-21 18:57] LABS: BACTERIA,URINE 4+ /HPF (Neg); WBC,URINE TNTC /HPF (0-4)
[2020-11-21 18:58] LABS: SQUAMOUS EPITHELIAL CELL,UR FEW /LPF (FEW)
[2020-11-21 19:14] LABS: KETONES,URINE 15 mg/dl (Neg); LEUKOCYTE ESTERASE ,URINE LARGE (Neg); PROTEIN,URINE 100 mg/dl (Neg)
--- NOTE | 2020-11-21 19:14 | NUR ---
LAB CALLED FOR URINE PROTEIN LEVELS MANUALLY BEING ENTERED FROM NEGATIVE TO 100; NOTIFIED.
[2020-11-21 19:15] LABS: CLARITY,URINE TURBID (Clear); UA COLLECTION TYPE URINAL
--- NOTE | 2020-11-21 19:15 | NUR ---
PT SLEEPING, RESP EVEN AND UNLABORED, PT IS EASILY AROUSEABLE, ALERT AND ORIENTED X3, PT C/O FEELING SLEEPY AND HUNGRY, NO C/O DIZZINESS/LIGHTHEADEDNESS,
--- NOTE | 2020-11-21 19:37 | NUR ---
DR RIOS AWARE OF BP
[2020-11-21] MEDS ORDERED: CefTRIAXone/D5W-Rocephin 1gm 50 ML IV ONE (19:40)
[2020-11-21] MEDS ORDERED: PRED20TA PO (19:49)
--- NOTE | 2020-11-21 19:54 | NUR ---
REPORT TO REUBEN RN, PT MOVED TO ROOM 1
--- NOTE | 2020-11-21 19:54 | NUR ---
AMEND TO NOTE ABOVE---I GAVE REPORT TO REUBEN NUEMANN, PT MOVED TO ROOM 1
[2020-11-21] MEDS ORDERED: CEFD300C3 PO (20:03)
[2020-11-21 20:55] VITALS: BP 135/68
== END 2020-11-21 20:56 | disposition home or self-care (01) ==
LOC: ER 14:22
DX: U07.1 COVID-19 (principal); N39.0 Urinary tract infection, site not specified; R05 Cough; R30.9 Painful micturition, unspecified; I48.91 Unspecified atrial fibrillation; I12.9 Hypertensive chronic kidney disease with stage 1 through stage 4 chronic kidney disease, or unspecified chronic kidney disease; E11.22 Type 2 diabetes mellitus with diabetic chronic kidney disease; N18.9 Chronic kidney disease, unspecified; M19.90 Unspecified osteoarthritis, unspecified site; M10.9 Gout, unspecified; Z98.890 Other specified postprocedural states; Z72.89 Other problems related to lifestyle; Z88.0 Allergy status to penicillin; Z88.8 Allergy status to other drugs, medicaments and biological substances; Z79.2 Long term (current) use of antibiotics; Z79.4 Long term (current) use of insulin; Z79.899 Other long term (current) drug therapy
CPT/HCPCS: 36415; 71045; 80053; 81001; 82948; 83735; 83880; 84145; 84484; 85025; 87077; 87088; 87186; 96365; 99284; J0696; M0243; Q0244